=== PATIENT | female | born 1960 | race Caucasian/White ===

== ENCOUNTER 2018-01-25 09:08 | Day surgery (SDC) | payer OTHER ==
[~2018-01-25 09:08] MED LIST: NATURAL THYROID PO; PROGESTERON PO
[2018-01-25] MEDS ORDERED: NAPR500T14 PO (15:45)
[2018-01-25] MEDS ORDERED: ULTRACET PO (15:46)
[2018-01-25] MEDS ORDERED: ZITHROMAX500 MG PO (15:48)
== END 2018-01-25 16:54 | disposition home or self-care (01) ==
LOC: CIR.AMB 09:08
DX: N84.0 Polyp of corpus uteri (principal)